=== PATIENT | female | born 1960 | race Caucasian/White ===

== ENCOUNTER 2020-08-16 20:20 | Inpatient (IN) ==
--- NOTE | 2020-08-16 20:41 | DR.CP ---
HPI Time Seen Time Seen by Provider: 08/16/20 20:40 PCP Primary Care Physician: KIP HPI Comment HPI Comment: Worsening weakness over the past 1-2 weeks with cp, sob especially with exertion, dizziness and palpitations; she had telemed per [facility] [place] and subsequent labs drawn at [facility]; received call today stating hb 4.9 as below; denies hemoptysis, epistaxis, vaginal and gi bleeding; reports h/o ellen with iron infusions in the past per cloak room attendant Dr Lazar at [facility]; none recently d/t lack of insurance; she has h/o Crohns, pancreatic insuff, rls, asthma/copd Complaint Chief Complaint:: PT STATES SHE'S BEEN FEELING WEEK OVER PAST FEW WEEKS. LAST NIGHT SHE STARTED HAVE CHEST PAIN, RELIEVED WITH NITRO X1 AT HOME. STARTED HAVING CHEST PAIN WITHIN LAST HR (HAS NOT TAKEN NTG TODAY). PT WAS NOTIFIED BY [facility] LAB RESULT: HBG=4.9, HCT=20.2 AND NBI=759 COVID-19 Coronavirus risk:travel/contact w/high risk person: No Has patient experienced Coronavirus symptoms: No Source History Provided: Patient Mode of Arrival Mode of Arrival: Ambulatory Timing Onset of Chief Complaint: 08/09/20 PMH PMH Past Medical History: Yes Past Medical History: Anemia, Asthma and Dyslipidemia Past Medical History Comment: CERVICAL STENOSIS, LOW BACK PAIN, RLS Past Surgical History: Yes Surgical History: Tonsillectomy Past Surgical History Comment: PARTIAL HYSTERECTOMY, TUBALIGATION Family History History of Family Medical Conditions: Yes Family Medical History: CT, Coronary Artery Disease and Hypertension Social History Does patient currently use any type of tobacco product: No Have you used tobacco products in the last 12 months: No Type of Tobacco Use: Cigarettes Does any household member use tobacco: No Alcohol Use: None Do you use any recreational Drugs:: No Lives With: Family Lives Where: Home Travel Risk Coronavirus risk:travel/contact w/high risk person: No Has patient experienced Coronavirus symptoms: No Infectious screening In the last 2 months have you had wt loss of >10#?: NO Have you had fever, night sweats or hemotysis?: No Have you traveled outside the country in the last 6 months?: No Isolation: Standard ROS Review of Systems Eyes: No Symptoms Reported ENTM: No Symptoms Reported Gastrointestinal/Abdominal: Diarrhea (diarrhea today) Genitourinary: No Symptoms Reported Neurological: No Symptoms Reported Musculoskeletal: No Symptoms Reported Integumentary: No Symptoms Reported Endocrine: No Symptoms Reported Psychiatric: No Symptoms Reported PE Vitals Vitals: Temperature 99.6 F Pulse Rate 91 Respiratory Rate 18 Blood Pressure 135/60 O2 Sat by Pulse Oximetry 99 General Limitations: No Limitations General Appearance: Alert and In No Apparent Distress Head Head Exam: Normal Inspection Eyes Eye exam: Normal Appearance ENT ENT Exam: Normal Exam Chest Chest Inspection: Normal Inspection Respiratory Respiratory Exam: Normal Lung Sounds Bilat Cardiovascular Cardiovascular Exam: Regular Rate and Normal Rhythm Pulse: Normal Edema: Normal Abdominal Exam Abdominal Exam: Normal Bowel Sounds, Soft and Tenderness (epigastrium) Extremities Extremities Exam: Normal Inspection Neurologic Neurological Exam: Alert and Oriented X3 Psychiatric Psychiatric Exam: Normal Affect and Normal Mood Skin Skin Exam: Warm, Dry, Intact and Normal Color COURSE Consultation Call Returned: 22:10 (s/w Dr Mosley who accepts admission) ROR Labs Reviewed Laboratory Results Reviewed?: Yes Result Diagrams: 08/16/20 21:07 08/16/20 21:07 Laboratory: WBC 9.8 X10^3/uL (3.6-10.0) 08/16/20 21:07 RBC 3.15 X10^6/uL (3.5-5.4) L 08/16/20 21:07 Hgb 4.8 g/dL (12.0-16.0) L* 08/16/20 21:07 Hct 16.6 % (36.0-47.0) L* 08/16/20 21:07 MCV 52.8 fL (80.0-100.0) L 08/16/20 21:07 MCH 15.2 pg (27.0-34.0) L 08/16/20 21:07 MCHC 28.8 g/dL (33.0-35.0) L 08/16/20 21:07 RDW 20.5 % (11.6-16.5) H 08/16/20 21:07 Plt Count 732 X10^3/uL (150.0-450.0) H 08/16/20 21:07 Plt Count Comment Increased (ADEQUATE) A 08/16/20 21:07 MPV 6.3 fL (7.4-11.0) L 08/16/20 21:07 Neut % (Auto) 61.4 % (42.0-75.0) 08/16/20 21:07 Lymph % (Auto) 28.7 % (21.0-51.0) 08/16/20 21:07 [place] % (Auto) 6.7 % (0.0-13.0) 08/16/20 21:07 Eos % (Auto) 1.8 % (0.9-2.9) 08/16/20 21:07 Baso % (Auto) 1.4 % (0.2-1.0) H 08/16/20 21:07 Neut # (Auto) 6.0 x10^3/uL (2.2-4.8) H 08/16/20 21:07 Lymph # (Auto) 2.8 X10^3/uL (1.3-2.9) 08/16/20 21:07 [place] # (Auto) 0.7 x10^3/uL (0.3-0.8) 08/16/20 21:07 Eos # (Auto) 0.2 x10^3/uL (0.0-0.2) 08/16/20 21:07 Baso # (Auto) 0.1 X10^3/uL (0.0-0.1) 08/16/20 21:07 Absolute Nucleated RBC 0.1 /100WBC 08/16/20 21:07 Plt Morphology Comment Normal (NORMAL) 08/16/20 21:07 RBC Morphology Abnormal (NORMAL) A 08/16/20 21:07 Hypochromasia 3+ A 08/16/20 21:07 Poikilocytosis 1+ A 08/16/20 21:07 Anisocytosis 1+ A 08/16/20 21:07 Microcytosis 3+ A 08/16/20 21:07 Target Cells Present 08/16/20 21:07 Tear Drop Cells Present 08/16/20 21:07 Ovalocytes Present 08/16/20 21:07 Stomatocytes Present 08/16/20 21:07 Sodium 142 mmol/L (136-145) 08/16/20 21:07 Corrected Sodium TNP 08/16/20 21:07 Potassium 3.7 mmol/L (3.5-5.1) 08/16/20 21:07 Chloride 104 mmol/L (98-107) 08/16/20 21:07 Carbon Dioxide 26.5 mmol/L (21-32) 08/16/20 21:07 BUN 7 mg/dL (7-18) 08/16/20 21:07 Creatinine 0.86 mg/dL (0.55-1.02) 08/16/20 21:07 Est GFR (MDRD) Af Amer > 60 (>60) 08/16/20 21:07 Est GFR (MDRD) Non-Af > 60 (>60) 08/16/20 21:07 Glucose 94 mg/dL (65-99) 08/16/20 21:07 Calcium 9.0 mg/dL (8.5-10.1) 08/16/20 21:07 Corrected Calcium TNP 08/16/20 21:07 Total Bilirubin 0.20 mg/dL (0.2-1.0) 08/16/20 21:07 AST 13 Units/L (15-37) L 08/16/20 21:07 ALT 11 Units/L (12-78) L 08/16/20 21:07 Alkaline Phosphatase 76 Units/L (46-116) 08/16/20 21:07 Creatine Kinase 90 Units/L (26-192) 08/16/20 21:07 CK-MB (CK-2) < 1.0 ng/mL (0-4.0) 08/16/20 21:07 CK/CKMB % Calc 1.1 % (<4) 08/16/20 21:07 Troponin I < 0.02 ng/mL (0-1.5) 08/16/20 21:07 Total Protein 7.4 g/dL (6.4-8.2) 08/16/20 21:07 Albumin 3.4 g/dL (3.4-5.0) 08/16/20 21:07 Globulin 4.0 g/dL (2.5-4.5) 08/16/20 21:07 Albumin/Globulin Ratio 0.9 Ratio (1.1-2.1) L 08/16/20 21:07 Specimen Type Clean catch urine 08/16/20 20:52 Urine Color Yellow (YELLOW) 08/16/20 20:52 Urine Appearance Clear (CLEAR) 08/16/20 20:52 Urine pH 7.0 (5.0 - 8.0) 08/16/20 20:52 Ur Specific [place] 1.010 (1.000-1.030) 08/16/20 20:52 Urine Protein Negative (NEGATIVE) 08/16/20 20:52 Urine Glucose (UA) Negative (NEGATIVE) 08/16/20 20:52 Urine Ketones Negative (NEGATIVE) 08/16/20 20:52 Urine Occult Blood Negative (NEGATIVE) 08/16/20 20:52 Urine Nitrite Negative (NEGATIVE) 08/16/20 20:52 Urine Bilirubin Negative (NEGATIVE) 08/16/20 20:52 Urine Urobilinogen Normal (NORMAL) 08/16/20 20:52 Ur Leukocyte Esterase Negative (NEGATIVE) 08/16/20 20:52 Blood Type B NEGATIVE 08/16/20 21:07 Antibody Screen Negative 08/16/20 21:07 Crossmatch See Detail 08/16/20 21:07 Opioid Opioid Risk Tool Age (Amilcar box if 16-45): No History of Preadolescent Sexual Abuse: No Total: 0 Total Score Risk Category: Low Risk Copyright: Nathan MARQUIS predicting aberrant behaviors Diagnosis Discharge Problem: Symptomatic anemia, Other chest pain, Pancreatic insufficiency, Restless legs syndrome (RLS) ELLEN (iron deficiency anemia) Qualifiers: Iron deficiency anemia type: other iron deficiency Qualified Code(s): D50.8 - Other iron deficiency anemias Crohn's disease Qualifiers: Gastrointestinal tract location: unspecified location Digestive disease complication type: without complication Qualified Code(s): K50.90 - Crohn's disease, unspecified, without complications Instructions Forms: Patient Portal Social Distancing
[2020-08-16 21:02] LABS: BILIRUBIN,URINE NEGATIVE (NEGATIVE); BLOOD/HEMOGLOBIN,URINE NEGATIVE (NEGATIVE); GLUCOSE, URINE NEGATIVE (NEGATIVE); KETONES,URINE NEGATIVE (NEGATIVE); LEUKOCYTE ESTERASE ,URINE NEGATIVE (NEGATIVE); NITRITES,URINE NEGATIVE (NEGATIVE); PROTEIN,URINE NEGATIVE (NEGATIVE); UROBILINOGEN,URINE NORMAL (NORMAL)
[2020-08-16 21:03] LABS: APPEARANCE,URINE CLEAR (CLEAR); COLOR,URINE YELLOW (YELLOW)
[2020-08-16 21:20] LABS: BASOPHILS # (AUTO) 0.1 X10^3/uL (0.0-0.1); BASOPHILS % (AUTO) 1.4 % (0.2-1.0); EOSINOPHILS # (AUTO) 0.2 x10^3/uL (0.0-0.2); EOSINOPHILS % (AUTO) 1.8 % (0.9-2.9); LYMPHOCYTES # (AUTO) 2.8 X10^3/uL (1.3-2.9); LYMPHOCYTES % (AUTO) 28.7 % (21.0-51.0); MEAN CORPUSCULAR HEMOGLOBIN 15.2 pg (27.0-34.0); MEAN CORPUSCULAR HGB CONC 28.8 g/dL (33.0-35.0); MEAN CORPUSCULAR VOLUME 52.8 fL (80.0-100.0); MEAN PLATELET VOLUME 6.3 fL (7.4-11.0); MONOCYTES # (AUTO) 0.7 x10^3/uL (0.3-0.8); MONOCYTES % (AUTO) 6.7 % (0.0-13.0); NEUTROPHILS % (AUTO) 61.4 % (42.0-75.0); PLATELET COUNT 732 X10^3/uL (150.0-450.0); RED BLOOD COUNT 3.15 X10^6/uL (3.5-5.4); RED CELL DISTRIBUTION WIDTH 20.5 % (11.6-16.5); WHITE BLOOD COUNT 9.8 X10^3/uL (3.6-10.0)
[2020-08-16 21:28] LABS: HEMATOCRIT 16.6 % (36.0-47.0); HEMOGLOBIN 4.8 g/dL (12.0-16.0)
[2020-08-16 21:38] LABS: ANISOCYTOSIS 1+; HYPOCHROMASIA 3+; MICROCYTOSIS 3+; PLATELET MORPHOLOGY COMMENT NORMAL (NORMAL); POIKILOCYTOSIS 1+
[2020-08-16 21:39] LABS: OVALOCYTES PRESENT; STOMATOCYTES PRESENT; TARGET CELLS PRESENT; TEAR DROP CELLS PRESENT
[2020-08-16 21:41] LABS: ALANINE AMINOTRANSFERASE 11 Units/L (12-78); ALBUMIN 3.4 g/dL (3.4-5.0); ALKALINE PHOSPHATASE 76 Units/L (46-116); ASPARTATE AMINO TRANSFERASE 13 Units/L (15-37); BLOOD UREA NITROGEN 7 mg/dL (7-18); CARBON DIOXIDE 26.5 mmol/L (21-32); CHLORIDE 104 mmol/L (98-107); CKMB % 1.1 % (<4); CREATINE KINASE 90 Units/L (26-192); CREATINE KINASE MB < 1.0 ng/mL (0-4.0); CREATININE 0.86 mg/dL (0.55-1.02); SODIUM 142 mmol/L (136-145); TOTAL PROTEIN 7.4 g/dL (6.4-8.2); TROPONIN I < 0.02 ng/mL (0-1.5); eGFR NON BLACK RACES > 60 (>60)
[2020-08-16] MEDS ORDERED: NS IV ONE (22:18)
[2020-08-16] MEDS ORDERED: INFED OR DEXFERRUM IV ONE (22:18)
--- NOTE | 2020-08-16 23:39 | RAD ---
EXAM: CHEST X-RAYHISTORY: Chest pain.TECHNIQUE: AP chest x-ray dated August 16, 2020 at 8:51 PM.COMPARISON: None available.FINDINGS:The heart size and mediastinum are within normal limits. The lung sherman and costophrenic angles are clear. There is no acute parenchymal infiltrate, pleural effusion, or pneumothorax seen. The visualized bony structures are within normal limits.IMPRESSION:1. No evidence for acute cardiopulmonary disease seen.Electronically signed by: Bailee Fisher (Aug 16, 2020 23:37:34)
[2020-08-16] MEDS ORDERED: NS 100 ML IV 100 ML with VENOFER 400 MG IV NR ×2 (23:45)
[2020-08-17] MEDS ORDERED: NS 250 ML IV 250 ML IV ONE (01:20)
[2020-08-17 01:36] VITALS: BMI 31.3
[2020-08-17] MEDS: NS 250 ML IV 250 ML IV PRN ×3 (01:47→16:09)
[2020-08-17] MEDS: REQUIP PO SCH ×2 (02:12→20:22)
[2020-08-17 04:51] LABS: ALANINE AMINOTRANSFERASE 10 Units/L (12-78); ALKALINE PHOSPHATASE 69 Units/L (46-116); ASPARTATE AMINO TRANSFERASE 11 Units/L (15-37); BLOOD UREA NITROGEN 5 mg/dL (7-18); CALCIUM 8.5 mg/dL (8.5-10.1); CARBON DIOXIDE 27.3 mmol/L (21-32); CHLORIDE 104 mmol/L (98-107); COR CA(FOR HYPOALB) 9.3 mg/dL (8.5-10.1); CREATININE 0.78 mg/dL (0.55-1.02); SODIUM 143 mmol/L (136-145); TOTAL PROTEIN 6.8 g/dL (6.4-8.2); eGFR NON BLACK RACES > 60 (>60)
[2020-08-17 04:54] LABS: BASOPHILS % (AUTO) 0 % (0.2-1.0); EOSINOPHILS # (AUTO) 0.1 x10^3/uL (0.0-0.2); EOSINOPHILS % (AUTO) 1.2 % (0.9-2.9); LYMPHOCYTES # (AUTO) 2.2 X10^3/uL (1.3-2.9); LYMPHOCYTES % (AUTO) 25.3 % (21.0-51.0); MEAN CORPUSCULAR HEMOGLOBIN 15.2 pg (27.0-34.0); MEAN CORPUSCULAR VOLUME 52.3 fL (80.0-100.0); MEAN PLATELET VOLUME 8.3 fL (7.4-11.0); MONOCYTES # (AUTO) 1.1 x10^3/uL (0.3-0.8); MONOCYTES % (AUTO) 12.2 % (0.0-13.0); NEUTROPHILS # (AUTO) 5.4 x10^3/uL (2.2-4.8); NEUTROPHILS % (AUTO) 61.3 % (42.0-75.0); PLATELET COUNT 700 X10^3/uL (150.0-450.0); RED BLOOD COUNT 2.99 X10^6/uL (3.5-5.4); RED CELL DISTRIBUTION WIDTH 20.3 % (11.6-16.5); WHITE BLOOD COUNT 8.9 X10^3/uL (3.6-10.0)
[2020-08-17 05:33] LABS: HEMATOCRIT 15.6 % (36.0-47.0); HEMOGLOBIN 4.5 g/dL (12.0-16.0); PLATELET MORPHOLOGY COMMENT NORMAL (NORMAL)
[2020-08-17 05:36] LABS: HYPOCHROMASIA 3+
[2020-08-17 05:37] LABS: ANISOCYTOSIS 1+; MICROCYTOSIS 3+; OVALOCYTES PRESENT; STOMATOCYTES PRESENT; TARGET CELLS PRESENT; TEAR DROP CELLS PRESENT
--- NOTE | 2020-08-17 10:38 | DR.H&P ---
H&P History & Physical for Day of: H&P Date: 08/17/20 Chief Complaint Chief Complaint: generalized weakness, SOB Allergies Allergies Allergy/AdvReac Type Severity Reaction Status Date / Time aspirin Allergy Verified 08/16/20 20:46 bismuth subsalicylate Allergy Verified 08/16/20 20:46 [From Pepto-Bismol] NSAIDS (Non-Steroidal Allergy Verified 08/16/20 20:46 Anti-Inflamma pregabalin [From Lyrica] Allergy Verified 08/16/20 20:46 Oklopcj-Kvh-Ttu Reductase Allergy Verified 08/16/20 20:46 Inhibitor History of Present Illness History of Present Illness: Ms. Wolfe is a 59y/o female with a PMH chronic neck & back pain due to DDD, ARMEN, Asthma and pancreatic insufficiency presented with worsening dyspnea, generalized weakness and chest pain for the past 2-3 weeks. She had a telemed visit with a provider and had outpatient labs don which showed severe anemia with a hgb of 4.9. She was told to go to the ER but she could not as she was taking care of her elderly mother. She came in yesterday and Hgb was 4.8 and then 4.5 this AM. Patient's blood products arrived from [place] [facility] this AM. She is currently getting her 2nd unit of PRBC. She states she had severe chest pain at home, felt like something heavy sitting on her ch est. She did take nitro which helped relive the pain. Denies hx of CAD, HTN or DM. Patient denies active bleeding, no melena or hemoptysis. She has had colonoscopy and EGD within the last year which showed hiatal hernia, no ulcers. She has a hx of ARMEN and used to get iron infusions, last one over 2 years ago. Denies prev blood transfusion. ER work up - Labs Hgb 4.8 trop (-) CMP within normal limits Iron:6 Ferritin: 2 UA (-) COVID-19 (-) CXR: no acute process Patient did receive iron transfusion in the ED. Plan: transfuse 2 unit PRBCs, check Hgb 1 hour after transfusion and if below 7, transfuse another 2 units. Order FOBT. Resume home medications. Monitor for any active bleeding. Repeat troponin, continue telemetry. Monitor AM labs and imaging. Time spent for clinical management, reviewing labs/imaging, physical exam, decision making and documentation greater than 75 mins. Past Medical History Past Medical History: Anemia, Asthma and Dyslipidemia Past Surgical History Surgical History: Hysterectomy, Tonsillectomy and Other Family History Family Medical History: Cancer and Coronary Artery Disease Social History Does patient currently use any type of tobacco product: Yes Have you used tobacco products in the last 12 months: Yes Type of Tobacco Use: Cigarettes How many years tobacco product used: 40 Does any household member use tobacco: No Alcohol Use: None Drug Use: None Prescription drug monitoring program results: PDMP reviewed and no concerns identified Medications Home Medications: aspirin Allergy (Verified 08/16/20 20:46) bismuth subsalicylate [From Pepto-Bismol] Allergy (Verified 08/16/20 20:46) NSAIDS (Non-Steroidal Anti-Inflamma Allergy (Verified 08/16/20 20:46) pregabalin [From Lyrica] Allergy (Verified 08/16/20 20:46) Khqfkpc-Xuc-Ozz Reductase Inhibitor Allergy (Verified 08/16/20 20:46) CONTINUE taking the following medications albuterol [Proventil] 180 mcg INHALATION Q4H PRN 08/16/20 [History] amitriptyline 50 mg PO QHS 08/16/20 [History] baclofen 10 mg PO TID 08/16/20 [History] hydrocodone-acetaminophen [Lortab 5-325] 1 tab PO Q6H PRN 08/16/20 [History] txgbmc-ywdxjhsm-ubeguly [Creon 20] 3 cap PO QID 08/16/20 [History] Labs Result Diagrams: 08/17/20 04:29 08/17/20 04:29 Labs: Laboratory WBC 8.9 X10^3/uL (3.6-10.0) 08/17/20 04:29 RBC 2.99 X10^6/uL (3.5-5.4) L 08/17/20 04:29 Hgb 4.5 g/dL (12.0-16.0) L* 08/17/20 04:29 Hct 15.6 % (36.0-47.0) L* 08/17/20 04:29 MCV 52.3 fL (80.0-100.0) L 08/17/20 04:29 MCH 15.2 pg (27.0-34.0) L 08/17/20 04:29 MCHC 29.0 g/dL (33.0-35.0) L 08/17/20 04:29 RDW 20.3 % (11.6-16.5) H 08/17/20 04:29 Plt Count 700 X10^3/uL (150.0-450.0) H 08/17/20 04:29 Plt Count Comment Increased (ADEQUATE) A 08/17/20 04:29 MPV 8.3 fL (7.4-11.0) 08/17/20 04:29 Neut % (Auto) 61.3 % (42.0-75.0) 08/17/20 04:29 Lymph % (Auto) 25.3 % (21.0-51.0) 08/17/20 04:29 [place] % (Auto) 12.2 % (0.0-13.0) 08/17/20 04:29 Eos % (Auto) 1.2 % (0.9-2.9) 08/17/20 04:29 Baso % (Auto) 0 % (0.2-1.0) L 08/17/20 04:29 Neut # (Auto) 5.4 x10^3/uL (2.2-4.8) H 08/17/20 04:29 Lymph # (Auto) 2.2 X10^3/uL (1.3-2.9) 08/17/20 04:29 [place] # (Auto) 1.1 x10^3/uL (0.3-0.8) H 08/17/20 04:29 Eos # (Auto) 0.1 x10^3/uL (0.0-0.2) 08/17/20 04:29 Baso # (Auto) 0.0 X10^3/uL (0.0-0.1) 08/17/20 04:29 Absolute Nucleated RBC 0.1 /100WBC 08/17/20 04:29 Plt Morphology Comment Normal (NORMAL) 08/17/20 04:29 RBC Morphology Abnormal (NORMAL) A 08/17/20 04:29 Hypochromasia 3+ A 08/17/20 04:29 Poikilocytosis 1+ A 08/16/20 21:07 Anisocytosis 1+ A 08/17/20 04:29 Microcytosis 3+ A 08/17/20 04:29 Target Cells Present 08/17/20 04:29 Tear Drop Cells Present 08/17/20 04:29 Ovalocytes Present 08/17/20 04:29 Stomatocytes Present 08/17/20 04:29 Sodium 143 mmol/L (136-145) 08/17/20 04:29 Corrected Sodium TNP 08/17/20 04:29 Potassium 3.7 mmol/L (3.5-5.1) 08/17/20 04:29 Chloride 104 mmol/L (98-107) 08/17/20 04:29 Carbon Dioxide 27.3 mmol/L (21-32) 08/17/20 04:29 BUN 5 mg/dL (7-18) L 08/17/20 04:29 Creatinine 0.78 mg/dL (0.55-1.02) 08/17/20 04:29 Est GFR (MDRD) Af Amer > 60 (>60) 08/17/20 04:29 Est GFR (MDRD) Non-Af > 60 (>60) 08/17/20 04:29 Glucose 107 mg/dL (65-99) H 08/17/20 04:29 Calcium 8.5 mg/dL (8.5-10.1) 08/17/20 04:29 Corrected Calcium 9.3 mg/dL (8.5-10.1) 08/17/20 04:29 Iron 6 ug/dL (50-175) L 08/16/20 20:07 TIBC 539 ug/dL (250-450) H 08/16/20 20:07 % Saturation 1.1 % (11.0-46.0) L 08/16/20 20:07 Transferrin 416 mg/dL (202-364) H 08/16/20 21:07 Ferritin 2 ng/mL (8-252) L 08/16/20 20:07 Total Bilirubin 0.20 mg/dL (0.2-1.0) 08/17/20 04:29 AST 11 Units/L (15-37) L 08/17/20 04:29 ALT 10 Units/L (12-78) L 08/17/20 04:29 Alkaline Phosphatase 69 Units/L (46-116) 08/17/20 04:29 Creatine Kinase 90 Units/L (26-192) 08/16/20 21:07 CK-MB (CK-2) < 1.0 ng/mL (0-4.0) 08/16/20 21:07 CK/CKMB % Calc 1.1 % (<4) 08/16/20 21:07 Troponin I < 0.02 ng/mL (0-1.5) 08/16/20 21:07 Total Protein 6.8 g/dL (6.4-8.2) 08/17/20 04:29 Albumin 3.0 g/dL (3.4-5.0) L 08/17/20 04:29 Globulin 3.8 g/dL (2.5-4.5) 08/17/20 04:29 Albumin/Globulin Ratio 0.8 Ratio (1.1-2.1) L 08/17/20 04:29 Specimen Type Clean catch urine 08/16/20 20:52 Urine Color Yellow (YELLOW) 08/16/20 20:52 Urine Appearance Clear (CLEAR) 08/16/20 20:52 Urine pH 7.0 (5.0 - 8.0) 08/16/20 20:52 Ur Specific [place] 1.010 (1.000-1.030) 08/16/20 20:52 Urine Protein Negative (NEGATIVE) 08/16/20 20:52 Urine Glucose (UA) Negative (NEGATIVE) 08/16/20 20:52 Urine Ketones Negative (NEGATIVE) 08/16/20 20:52 Urine Occult Blood Negative (NEGATIVE) 08/16/20 20:52 Urine Nitrite Negative (NEGATIVE) 08/16/20 20:52 Urine Bilirubin Negative (NEGATIVE) 08/16/20 20:52 Urine Urobilinogen Normal (NORMAL) 08/16/20 20:52 Ur Leukocyte Esterase Negative (NEGATIVE) 08/16/20 20:52 SARS CoV-2 RNA Rapid PATRICIO Negative (NEGATIVE) 08/16/20 23:00 Blood Type B NEGATIVE 08/16/20 21:07 Antibody Screen Negative 08/16/20 21:07 Crossmatch See Detail 08/16/20 21:07 Review of Systems Constitutional: Weakness and Malaise Eyes: No Symptoms Reported ENT: No Symptoms Reported Respiratory: Shortness of Breath Cardiovascular: Chest Pain Gastrointestinal: No Symptoms Reported Genitourinary: No Symptoms Reported Musculoskeletal: Back Pain and Neck Pain Skin: No Symptoms Reported Neurological: No Symptoms Reported Physical Exam Vital Signs: Temperature 98.8 F Pulse Rate [Right] 79 Pulse Rate 81 Respiratory Rate 18 Blood Pressure [Right Arm] 141/67 Blood Pressure 130/63 O2 Sat by Pulse Oximetry 100 Oriented: Normal Eyes: Normal Ear: Normal Nose: Normal Throat: Normal Respiratory: Clear Throughout Cardiovascular: Normal Auscultation: Bowel Sounds: Normal Palpation: Normal Tenderness: Normal Skin: Normal Musculoskeletal: Back:Thoracic, Back:Lumbar and Back:Paraspinous Psychiatric: Normal Mood Description: Calm Speech Pattern: Clear and Appropriate Assessment/Plan (1) Symptomatic anemia: Status: Acute (2) ARMEN (iron deficiency anemia): Qualifiers: Iron deficiency anemia type: other iron deficiency Qualified Code(s): D50.8 - Other iron deficiency anemias Status: Acute (3) Other chest pain: Status: Acute (4) Crohn's disease: Qualifiers: Digestive disease complication type: without complication Gastrointestinal tract location: unspecified location Qualified Code(s): K50.90 - Crohn's disease, unspecified, without complications Status: Acute (5) Pancreatic insufficiency: Status: Acute (6) Restless legs syndrome (RLS): Status: Acute Review H&P Reviewed: Yes Patient was examined?: Yes
[2020-08-17] MEDS: DUONEB 0.5 MG/3 MG (3 mL) NEB SCH ×2 (12:00→21:16)
[2020-08-17] MEDS: [UNRECOGNIZED DRUG - OTHER] PO SCH ×3 (12:21→20:22)
[2020-08-17] MEDS: LIPASE PROTEASE AMYLASE PO SCH ×3 (12:21→20:22)
[2020-08-17] MEDS: NORCO 5/325 MG TAB PO PRN ×2 (12:21→20:22)
[2020-08-17 12:54] LABS: HEMATOCRIT 23.7 % (36.0-47.0); HEMOGLOBIN 7.4 g/dL (12.0-16.0)
[2020-08-17] MEDS: LIORESAL PO SCH ×2 (14:31→21:00)
[2020-08-17 19:36] LABS: HEMOGLOBIN 9.1 g/dL (12.0-16.0)
[2020-08-17] MEDS: ELAVIL PO SCH (20:22)
[2020-08-18] MEDS: NORCO 5/325 MG TAB PO PRN ×3 (04:00→21:01)
[2020-08-18 04:42] LABS: BASOPHILS # (AUTO) 0.2 X10^3/uL (0.0-0.1); BASOPHILS % (AUTO) 1.9 % (0.2-1.0); EOSINOPHILS # (AUTO) 0.3 x10^3/uL (0.0-0.2); EOSINOPHILS % (AUTO) 3.3 % (0.9-2.9); HEMATOCRIT 27.9 % (36.0-47.0); HEMOGLOBIN 8.8 g/dL (12.0-16.0); LYMPHOCYTES # (AUTO) 2.2 X10^3/uL (1.3-2.9); LYMPHOCYTES % (AUTO) 22.3 % (21.0-51.0); MEAN CORPUSCULAR HEMOGLOBIN 19.9 pg (27.0-34.0); MEAN CORPUSCULAR HGB CONC 31.7 g/dL (33.0-35.0); MEAN CORPUSCULAR VOLUME 62.7 fL (80.0-100.0); MEAN PLATELET VOLUME 8.4 fL (7.4-11.0); MONOCYTES # (AUTO) 0.7 x10^3/uL (0.3-0.8); MONOCYTES % (AUTO) 7.7 % (0.0-13.0); NEUTROPHILS # (AUTO) 6.2 x10^3/uL (2.2-4.8); NEUTROPHILS % (AUTO) 64.8 % (42.0-75.0); PLATELET COUNT 619 X10^3/uL (150.0-450.0); RED BLOOD COUNT 4.44 X10^6/uL (3.5-5.4); RED CELL DISTRIBUTION WIDTH 32.1 % (11.6-16.5); WHITE BLOOD COUNT 9.6 X10^3/uL (3.6-10.0)
[2020-08-18 04:43] LABS: BLOOD UREA NITROGEN 2 mg/dL (7-18); CALCIUM 8.8 mg/dL (8.5-10.1); CHLORIDE 106 mmol/L (98-107); CREATININE 0.79 mg/dL (0.55-1.02); SODIUM 143 mmol/L (136-145); eGFR NON BLACK RACES > 60 (>60)
[2020-08-18 05:02] LABS: PLATELET MORPHOLOGY COMMENT NORMAL (NORMAL)
[2020-08-18 05:03] LABS: ANISOCYTOSIS 3+; HYPOCHROMASIA 2+; MICROCYTOSIS 2+; OVALOCYTES PRESENT; TARGET CELLS PRESENT; TEAR DROP CELLS PRESENT
[2020-08-18] MEDS: LIORESAL PO SCH ×3 (05:17→20:54)
[2020-08-18] MEDS: LIPASE PROTEASE AMYLASE PO SCH ×4 (08:40→20:54)
[2020-08-18] MEDS: [UNRECOGNIZED DRUG - OTHER] PO SCH ×4 (08:40→20:54)
[2020-08-18] MEDS: DUONEB 0.5 MG/3 MG (3 mL) NEB SCH ×2 (08:42→21:18)
--- NOTE | 2020-08-18 09:57 | PCM.PROG ---
Progress Note Progress Note for Day of Date of Exam: 08/18/20 Subjective Subjective: Patient seen at bedside, no overnight events. She has been [facility] ICU. She states she was not able to sleep much due to constant back pain and not being able to get comfortable. She did get her pain medicine. She states she felt slightly better last night after the francis sfusions. She received 3 units of PRBCs. Her Hgb this morning is 8.8. Denies active bleeding. No BM yet. Patient does report some indigestion and heartburn. She takes Nexium at home. Labs: Hgb 8.8 Plt 619 Na: 143 K: 3.7 Glucose 109 Trop (-) Plan: Consult PT/OT, follow up on FOBT. Resume nexium, add zofran prn for nausea. Monitor for any signs of bleeding. Monitor H/H. Monitor AM labs and i maging. Past Medical Family Social History Past Med/Fam/Surg Hx: No changes since H&P Allergies: Allergies aspirin Allergy (Verified 08/16/20 20:46) bismuth subsalicylate [From Pepto-Bismol] Allergy (Verified 08/16/20 20:46) NSAIDS (Non-Steroidal Anti-Inflamma Allergy (Verified 08/16/20 20:46) pregabalin [From Lyrica] Allergy (Verified 08/16/20 20:46) Xpsekbq-Akx-Nvn Reductase Inhibitor Allergy (Verified 08/16/20 20:46) Review of Systems ROS: No change since H&P Vital Signs and I&O's Vital Signs: Temperature 98.4 F Pulse Rate [Right] 79 Pulse Rate 82 Respiratory Rate 21 Blood Pressure [Right Arm] 142/69 Blood Pressure 130/63 O2 Sat by Pulse Oximetry 95 Intake and Output: Intake & Output 08/15/20 08/16/20 08/17/20 08/18/20 23:59 23:59 23:59 23:59 Intake Total 2346 / 2346 250 / 250 Output Total 0 / 0 Balance 2346 / 2346 250 / 250 Physical Exam Oriented: Normal Eyes: Normal Ear: Normal Nose: Normal Throat: Normal Respiratory: Normal Cardiovascular: Normal Auscultation: Bowel Sounds: Normal Tenderness: Normal Skin: Normal Musculoskeletal: Back:Thoracic, Back:Lumbar and Back:Paraspinous Psychiatric: Normal Mood Description: Calm Affect: Normal Speech Pattern: Clear and Appropriate Laboratory and Diagnostics Result Diagrams: 08/18/20 04:10 08/18/20 04:10 Labs: Laboratory WBC 9.6 X10^3/uL (3.6-10.0) 08/18/20 04:10 RBC 4.44 X10^6/uL (3.5-5.4) 08/18/20 04:10 Hgb 8.8 g/dL (12.0-16.0) L 08/18/20 04:10 Hct 27.9 % (36.0-47.0) L 08/18/20 04:10 MCV 62.7 fL (80.0-100.0) L 08/18/20 04:10 MCH 19.9 pg (27.0-34.0) L 08/18/20 04:10 MCHC 31.7 g/dL (33.0-35.0) L 08/18/20 04:10 RDW 32.1 % (11.6-16.5) H 08/18/20 04:10 Plt Count 619 X10^3/uL (150.0-450.0) H 08/18/20 04:10 Plt Count Comment Increased (ADEQUATE) A 08/18/20 04:10 MPV 8.4 fL (7.4-11.0) 08/18/20 04:10 Neut % (Auto) 64.8 % (42.0-75.0) 08/18/20 04:10 Lymph % (Auto) 22.3 % (21.0-51.0) 08/18/20 04:10 [place] % (Auto) 7.7 % (0.0-13.0) 08/18/20 04:10 Eos % (Auto) 3.3 % (0.9-2.9) H 08/18/20 04:10 Baso % (Auto) 1.9 % (0.2-1.0) H 08/18/20 04:10 Neut # (Auto) 6.2 x10^3/uL (2.2-4.8) H 08/18/20 04:10 Lymph # (Auto) 2.2 X10^3/uL (1.3-2.9) 08/18/20 04:10 [place] # (Auto) 0.7 x10^3/uL (0.3-0.8) 08/18/20 04:10 Eos # (Auto) 0.3 x10^3/uL (0.0-0.2) H 08/18/20 04:10 Baso # (Auto) 0.2 X10^3/uL (0.0-0.1) H 08/18/20 04:10 Absolute Nucleated RBC 0.3 /100WBC 08/18/20 04:10 Plt Morphology Comment Normal (NORMAL) 08/18/20 04:10 RBC Morphology Abnormal (NORMAL) A 08/18/20 04:10 Dimorphic RBCs Present 08/18/20 04:10 Hypochromasia 2+ A 08/18/20 04:10 Poikilocytosis 1+ A 08/16/20 21:07 Anisocytosis 3+ A 08/18/20 04:10 Microcytosis 2+ A 08/18/20 04:10 Target Cells Present 08/18/20 04:10 Tear Drop Cells Present 08/18/20 04:10 Ovalocytes Present 08/18/20 04:10 Stomatocytes Present 08/17/20 04:29 Sodium 143 mmol/L (136-145) 08/18/20 04:10 Corrected Sodium TNP 08/18/20 04:10 Potassium 3.7 mmol/L (3.5-5.1) 08/18/20 04:10 Chloride 106 mmol/L (98-107) 08/18/20 04:10 Carbon Dioxide 26.0 mmol/L (21-32) 08/18/20 04:10 BUN 2 mg/dL (7-18) L 08/18/20 04:10 Creatinine 0.79 mg/dL (0.55-1.02) 08/18/20 04:10 Est GFR (MDRD) Af Amer > 60 (>60) 08/18/20 04:10 Est GFR (MDRD) Non-Af > 60 (>60) 08/18/20 04:10 Glucose 109 mg/dL (65-99) H 08/18/20 04:10 Calcium 8.8 mg/dL (8.5-10.1) 08/18/20 04:10 Corrected Calcium 9.3 mg/dL (8.5-10.1) 08/17/20 04:29 Iron 6 ug/dL (50-175) L 08/16/20 20:07 TIBC 539 ug/dL (250-450) H 08/16/20 20:07 % Saturation 1.1 % (11.0-46.0) L 08/16/20 20:07 Transferrin 416 mg/dL (202-364) H 08/16/20 21:07 Ferritin 2 ng/mL (8-252) L 08/16/20 20:07 Total Bilirubin 0.20 mg/dL (0.2-1.0) 08/17/20 04:29 AST 11 Units/L (15-37) L 08/17/20 04:29 ALT 10 Units/L (12-78) L 08/17/20 04:29 Alkaline Phosphatase 69 Units/L (46-116) 08/17/20 04:29 Creatine Kinase 90 Units/L (26-192) 08/16/20 21:07 CK-MB (CK-2) < 1.0 ng/mL (0-4.0) 08/16/20 21:07 CK/CKMB % Calc 1.1 % (<4) 08/16/20 21:07 Troponin I < 0.02 ng/mL (0-1.5) 08/17/20 10:54 Total Protein 6.8 g/dL (6.4-8.2) 08/17/20 04:29 Albumin 3.0 g/dL (3.4-5.0) L 08/17/20 04:29 Globulin 3.8 g/dL (2.5-4.5) 08/17/20 04:29 Albumin/Globulin Ratio 0.8 Ratio (1.1-2.1) L 08/17/20 04:29 Specimen Type Clean catch urine 08/16/20 20:52 Urine Color Yellow (YELLOW) 08/16/20 20:52 Urine Appearance Clear (CLEAR) 08/16/20 20:52 Urine pH 7.0 (5.0 - 8.0) 08/16/20 20:52 Ur Specific [place] 1.010 (1.000-1.030) 08/16/20 20:52 Urine Protein Negative (NEGATIVE) 08/16/20 20:52 Urine Glucose (UA) Negative (NEGATIVE) 08/16/20 20:52 Urine Ketones Negative (NEGATIVE) 08/16/20 20:52 Urine Occult Blood Negative (NEGATIVE) 08/16/20 20:52 Urine Nitrite Negative (NEGATIVE) 08/16/20 20:52 Urine Bilirubin Negative (NEGATIVE) 08/16/20 20:52 Urine Urobilinogen Normal (NORMAL) 08/16/20 20:52 Ur Leukocyte Esterase Negative (NEGATIVE) 08/16/20 20:52 SARS CoV-2 RNA Rapid PATRICIO Negative (NEGATIVE) 08/16/20 23:00 Blood Type B NEGATIVE 08/16/20 21:07 Antibody Screen Negative 08/16/20 21:07 Crossmatch See Detail 08/16/20 21:07 Plan (1) Symptomatic anemia: Status: Acute (2) ARMEN (iron deficiency anemia): Status: Acute Qualifiers: Iron deficiency anemia type: other iron deficiency Qualified Code(s): D50.8 - Other iron deficiency anemias (3) Other chest pain: Status: Acute (4) Crohn's disease: Status: Acute Qualifiers: Digestive disease complication type: without complication Gastroi ntestinal tract location: unspecified location Qualified Code(s): K50.90 - Crohn's disease, unspecified, without complications (5) Pancreatic insufficiency: Status: Acute (6) Restless legs syndrome (RLS): Status: Acute
[2020-08-18] MEDS ORDERED: ZOFRAN TAB 4 MG PO PRN (10:02)
[2020-08-18] MEDS: NexIUM PO SCH (10:31)
[2020-08-18] MEDS: ELAVIL PO SCH (20:54)
[2020-08-18] MEDS: REQUIP PO SCH (20:54)
[2020-08-19] MEDS: NORCO 5/325 MG TAB PO PRN ×2 (03:49→11:20)
[2020-08-19 05:00] LABS: BASOPHILS # (AUTO) 0.3 X10^3/uL (0.0-0.1); BASOPHILS % (AUTO) 2.3 % (0.2-1.0); EOSINOPHILS # (AUTO) 0.4 x10^3/uL (0.0-0.2); HEMATOCRIT 26.9 % (36.0-47.0); HEMOGLOBIN 8.4 g/dL (12.0-16.0); LYMPHOCYTES # (AUTO) 2.7 X10^3/uL (1.3-2.9); LYMPHOCYTES % (AUTO) 24.5 % (21.0-51.0); MEAN CORPUSCULAR HGB CONC 31.4 g/dL (33.0-35.0); MEAN CORPUSCULAR VOLUME 63.6 fL (80.0-100.0); MEAN PLATELET VOLUME 8.2 fL (7.4-11.0); MONOCYTES # (AUTO) 0.7 x10^3/uL (0.3-0.8); MONOCYTES % (AUTO) 6.8 % (0.0-13.0); NEUTROPHILS # (AUTO) 6.8 x10^3/uL (2.2-4.8); NEUTROPHILS % (AUTO) 62.4 % (42.0-75.0); PLATELET COUNT 608 X10^3/uL (150.0-450.0); RED BLOOD COUNT 4.23 X10^6/uL (3.5-5.4); RED CELL DISTRIBUTION WIDTH 31.9 % (11.6-16.5); WHITE BLOOD COUNT 10.9 X10^3/uL (3.6-10.0)
[2020-08-19 05:02] LABS: BLOOD UREA NITROGEN 4 mg/dL (7-18); CALCIUM 8.9 mg/dL (8.5-10.1); CARBON DIOXIDE 26.8 mmol/L (21-32); CHLORIDE 107 mmol/L (98-107); CREATININE 0.81 mg/dL (0.55-1.02); SODIUM 144 mmol/L (136-145); eGFR NON BLACK RACES > 60 (>60)
[2020-08-19 05:21] LABS: ANISOCYTOSIS 3+; HYPOCHROMASIA 2+; MICROCYTOSIS 2+; PLATELET MORPHOLOGY COMMENT NORMAL (NORMAL); TEAR DROP CELLS PRESENT
[2020-08-19 05:22] LABS: OVALOCYTES PRESENT
[2020-08-19] MEDS: LIORESAL PO SCH ×2 (05:23→14:15)
[2020-08-19] MEDS ORDERED: TUSSIONEX PENNKINETIC SUSP PO PRN (08:21)
[2020-08-19] MEDS: LIPASE PROTEASE AMYLASE PO SCH ×3 (08:52→17:19)
[2020-08-19] MEDS: [UNRECOGNIZED DRUG - OTHER] PO SCH ×3 (08:52→17:19)
[2020-08-19] MEDS: NexIUM PO SCH (08:52)
[2020-08-19] MEDS: DUONEB 0.5 MG/3 MG (3 mL) NEB SCH ×2 (09:19→13:08)
[2020-08-19] MEDS ORDERED: SENOKOT PO SCH (11:00)
--- NOTE | 2020-08-19 13:54 | RAD ---
HISTORYLow hemoglobinSTUDYChest AP caltxyfmULIWWAXULD11/19/2021FINDINGSThe heart is mildly enlarged. No congestive heart failure is noted. No acute alveolar infiltrates or pleural effusions are identified. There is a moderate-sized hiatal hernia present. Bony thorax is unremarkable.IMPRESSIONMinimal cardiomegaly without congestive heart failureLungs clearModerate-sized hiatal herniaElectronically signed by: DAAN FRANCIS (Aug 19, 2020 13:52:58)
[2020-08-19] MEDS ORDERED: ZITHROMAX TAB 250 MG PO ONE (14:07)
--- NOTE | 2020-08-19 14:41 | RAD ---
PROCEDURE: Abdomen X-ray 1 View .HISTORY: HIstory of low hemoglobin .TECHNIQUE: AP supine abdomen view .COMPARISON: None .TECHNICAL QUALITY: Satisfactory .FINDINGS:Scattered gas and feces in the colon without distention. No obstruction or ileus.No organomegaly.No abnormal calcifications.No acute bony abnormality.IMPRESSION:Nonspecific bowel-gas pattern.Electronically signed by: Keenan Lopez (Aug 19, 2020 14:38:12)
[2020-08-19] MEDS ORDERED: MILK OF MAGNESIA PO SCH (14:45)
[2020-08-19 16:01] VITALS: BP 138/67
--- NOTE | 2020-08-19 16:47 | W.DIS.FURT ---
Summary of Discharge Discharge Summary of Date Date of Exam: 08/19/20 Admission Date Date of Admission: 08/17/20 Admission Diagnosis Patient Problems (Updated 08/20/20 @ 16:28 by Pat Mosley) Symptomatic anemia (Acute) D64.9 ARMEN (iron deficiency anemia) (Acute) D50.9 Other chest pain (Acute) R07.89 Crohn's disease (Chronic) K50.90 Pancreatic insufficiency (Chronic) K86.89 Restless legs syndrome (RLS) (Chronic) G25.81 Hospital Course: Ms. Wolfe is a 59y/o female with a H chronic neck & back pain due to DDD, ARMEN, Asthma and pancreatic insufficiency presented with worsening dyspnea, gener alized weakness and chest pain for the past 2-3 weeks. She had a telemed visit with a provider and had outpatient labs don which showed severe anemia with a hgb of 4.9. She was told to go to the ER but she could not as she was taking care of her elderly mother. She states she had severe chest pain at home, felt like something heavy sitting on her chest. She did take nitro which helped relive the pain. Denies hx of CAD, HTN or DM. Patient denies active bleeding, no melena or hemoptysis. She has had colonoscopy and EGD within the last year which showed hiatal hernia, no ulcers. She has a hx of ARMEN and used to get iron infusions, last one over 2 years ago. Denies prev blood transfusion. In the ER, she was found to have Hgb 4.8, iron 6 and Ferritin 3. Cardiac enzymes were negative. Patient's blood was type and crossed and products came from a lab in [place]. Patient was started on iron transfusion in the ER. She received a total of 3 PRBCs. Patient's hgb remained stable after transfusions. PT/OT was also consulted and recommended no further needs. Patient's weakness improved and she was ambulating in the room. Stool occult was ordered but patient did not have BM while admitted. KUB did show stool and she was given milk of magnesia. She was also started on oral iron supplements. She did have some cough and CXR was done which did not show pneumonia. She was stable for discharge, hgb 8.4. She will follow up with PCP and Dr. Davis for further outpatient work up. Vital Signs: Vital Signs (72 hours) 08/16/20 20:23 08/16/20 20:54 08/16/20 21:00 Temperature 99.6 F Pulse Rate 95 H 97 H 93 H Pulse Rate [Right] Respiratory Rate 20 18 18 Blood Pressure 124/58 135/60 Blood Pressure [Left Arm] Blood Pressure [Right Arm] O2 Sat by Pulse Oximetry 99 99 99 08/16/20 21:01 08/16/20 21:15 08/16/20 21:30 Temperature Pulse Rate 91 H 92 H 91 H Pulse Rate [Right] Respiratory Rate 18 25 H 23 Blood Pressure 135/60 138/62 Blood Pressure [Left Arm] Blood Pressure [Right Arm] O2 Sat by Pulse Oximetry 99 99 100 08/16/20 21:45 08/16/20 22:00 08/16/20 22:04 Temperature Pulse Rate 89 85 87 Pulse Rate [Right] Respiratory Rate 22 23 31 H Blood Pressure 127/60 Blood Pressure [Left Arm] Blood Pressure [Right Arm] O2 Sat by Pulse Oximetry 100 100 100 08/16/20 22:15 08/16/20 22:30 08/16/20 22:33 Temperature Pulse Rate 82 84 82 Pulse Rate [Right] Respiratory Rate 19 19 20 Blood Pressure 132/65 Blood Pressure [Left Arm] Blood Pressure [Right Arm] O2 Sat by Pulse Oximetry 99 100 100 08/16/20 22:45 08/16/20 23:00 08/16/20 23:01 Temperature Pulse Rate 83 83 82 Pulse Rate [Right] Respiratory Rate 22 26 H 18 Blood Pressure 127/60 Blood Pressure [Left Arm] Blood Pressure [Right Arm] O2 Sat by Pulse Oximetry 100 92 L 100 08/16/20 23:15 08/16/20 23:30 08/16/20 23:48 Temperature Pulse Rate 94 H 84 86 Pulse Rate [Right] Respiratory Rate 19 Blood Pressure 132/60 Blood Pressure [Left Arm] Blood Pressure [Right Arm] O2 Sat by Pulse Oximetry 100 97 96 08/16/20 23:52 08/17/20 00:47 08/17/20 01:00 Temperature 99.2 F Pulse Rate 81 Pulse Rate [Right] 84 Respiratory Rate 20 24 23 Blood Pressure 130/63 Blood Pressure [Left Arm] Blood Pressure [Right Arm] 136/70 O2 Sat by Pulse Oximetry 100 100 08/17/20 06:25 08/17/20 09:54 06/20/21 12:21 Temperature 98.6 F 98.8 F Pulse Rate Pulse Rate [Right] 73 79 Respiratory Rate 18 18 20 Blood Pressure Blood Pressure [Left Arm] Blood Pressure [Right Arm] 133/68 141/67 O2 Sat by Pulse Oximetry 97 100 08/17/20 13:21 08/17/20 14:00 08/17/20 17:56 Temperature 98.7 F 98.9 F Pulse Rate Pulse Rate [Right] 78 71 Respiratory Rate 20 18 20 Blood Pressure Blood Pressure [Left Arm] Blood Pressure [Right Arm] 140/66 136/67 O2 Sat by Pulse Oximetry 97 96 08/17/20 20:22 08/17/20 21:16 08/17/20 21:22 Temperature Pulse Rate 77 Pulse Rate [Right] Respiratory Rate 22 21 Blood Pressure Blood Pressure [Left Arm] Blood Pressure [Right Arm] O2 Sat by Pulse Oximetry 99 08/17/20 22:00 08/18/20 04:00 08/18/20 05:00 Temperature 98.0 F 98.3 F Pulse Rate Pulse Rate [Right] 87 78 Respiratory Rate 27 H 22 22 Blood Pressure Blood Pressure [Left Arm] Blood Pressure [Right Arm] 146/69 153/73 O2 Sat by Pulse Oximetry 97 99 08/18/20 08:00 08/18/20 08:42 08/18/20 12:00 Temperature 98.4 F 98.2 F Pulse Rate 82 Pulse Rate [Right] 79 80 Respiratory Rate 21 20 Blood Pressure Blood Pressure [Left Arm] Blood Pressure [Right Arm] 142/69 139/61 O2 Sat by Pulse Oximetry 94 L 95 94 L 08/18/20 13:45 08/18/20 14:45 08/18/20 15:56 Temperature 97.9 F Pulse Rate Pulse Rate [Right] 81 Respiratory Rate 22 22 18 Blood Pressure Blood Pressure [Left Arm] Blood Pressure [Right Arm] 127/58 O2 Sat by Pulse Oximetry 94 L 08/18/20 20:00 08/18/20 21:01 08/18/20 21:18 Temperature 98.3 F Pulse Rate 73 Pulse Rate [Right] 77 Respiratory Rate 18 18 Blood Pressure Blood Pressure [Left Arm] 126/61 Blood Pressure [Right Arm] O2 Sat by Pulse Oximetry 94 L 99 08/18/20 22:01 08/19/20 00:00 08/19/20 03:49 Temperature 98.4 F Pulse Rate Pulse Rate [Right] 79 Respiratory Rate 18 18 18 Blood Pressure Blood Pressure [Left Arm] 131/62 Blood Pressure [Right Arm] O2 Sat by Pulse Oximetry 96 08/19/20 04:00 08/19/20 04:49 08/19/20 08:00 Temperature 98.2 F 97.3 F L Pulse Rate Pulse Rate [Right] 76 76 Respiratory Rate 18 18 20 Blood Pressure Blood Pressure [Left Arm] 144/68 117/58 Blood Pressure [Right Arm] O2 Sat by Pulse Oximetry 97 95 08/19/20 09:19 08/19/20 11:20 08/19/20 12:00 Temperature 97.8 F Pulse Rate 80 Pulse Rate [Right] 78 Respiratory Rate 18 21 Blood Pressure Blood Pressure [Left Arm] 113/65 Blood Pressure [Right Arm] O2 Sat by Pulse Oximetry 95 93 L 08/19/20 12:20 08/19/20 13:08 08/19/20 16:00 Temperature 97.6 F Pulse Rate 86 Pulse Rate [Right] 86 Respiratory Rate 18 20 Blood Pressure Blood Pressure [Left Arm] 138/67 Blood Pressure [Right Arm] O2 Sat by Pulse Oximetry 97 96 Labs: Laboratory Last Values WBC 10.9 X10^3/uL (3.6-10.0) H 08/19/20 04:32 RBC 4.23 X10^6/uL (3.5-5.4) 08/19/20 04:32 Hgb 8.4 g/dL (12.0-16.0) L 08/19/20 04:32 Hct 26.9 % (36.0-47.0) L 08/19/20 04:32 MCV 63.6 fL (80.0-100.0) L 08/19/20 04:32 MCH 20.0 pg (27.0-34.0) L 08/19/20 04:32 MCHC 31.4 g/dL (33.0-35.0) L 08/19/20 04:32 RDW 31.9 % (11.6-16.5) H 08/19/20 04:32 Plt Count 608 X10^3/uL (150.0-450.0) H 08/19/20 04:32 Plt Count Comment Increased (ADEQUATE) A 08/19/20 04:32 MPV 8.2 fL (7.4-11.0) 08/19/20 04:32 Neut % (Auto) 62.4 % (42.0-75.0) 08/19/20 04:32 Lymph % (Auto) 24.5 % (21.0-51.0) 08/19/20 04:32 Jack % (Auto) 6.8 % (0.0-13.0) 08/19/20 04:32 Eos % (Auto) 4.0 % (0.9-2.9) H 08/19/20 04:32 Baso % (Auto) 2.3 % (0.2-1.0) H 08/19/20 04:32 Neut # (Auto) 6.8 x10^3/uL (2.2-4.8) H 08/19/20 04:32 Lymph # (Auto) 2.7 X10^3/uL (1.3-2.9) 08/19/20 04:32 Jack # (Auto) 0.7 x10^3/uL (0.3-0.8) 08/19/20 04:32 Eos # (Auto) 0.4 x10^3/uL (0.0-0.2) H 08/19/20 04:32 Baso # (Auto) 0.3 X10^3/uL (0.0-0.1) H 08/19/20 04:32 Absolute Nucleated RBC 0.3 /100WBC 08/19/20 04:32 Plt Morphology Comment Normal (NORMAL) 08/19/20 04:32 RBC Morphology Abnormal (NORMAL) A 08/19/20 04:32 Dimorphic RBCs Present 08/19/20 04:32 Hypochromasia 2+ A 08/19/20 04:32 Poikilocytosis 1+ A 08/16/20 21:07 Anisocytosis 3+ A 08/19/20 04:32 Microcytosis 2+ A 08/19/20 04:32 Target Cells Present 08/18/20 04:10 Tear Drop Cells Present 08/19/20 04:32 Ovalocytes Present 08/19/20 04:32 Stomatocytes Present 08/17/20 04:29 Sodium 144 mmol/L (136-145) 08/19/20 04:32 Corrected Sodium TNP 08/19/20 04:32 Potassium 3.8 mmol/L (3.5-5.1) 08/19/20 04:32 Chloride 107 mmol/L (98-107) 08/19/20 04:32 Carbon Dioxide 26.8 mmol/L (21-32) 08/19/20 04:32 BUN 4 mg/dL (7-18) L 08/19/20 04:32 Creatinine 0.81 mg/dL (0.55-1.02) 08/19/20 04:32 Est GFR (MDRD) Af Amer > 60 (>60) 08/19/20 04:32 Est GFR (MDRD) Non-Af > 60 (>60) 08/19/20 04:32 Glucose 100 mg/dL (65-99) H 08/19/20 04:32 Calcium 8.9 mg/dL (8.5-10.1) 08/19/20 04:32 Corrected Calcium 9.3 mg/dL (8.5-10.1) 08/17/20 04:29 Iron 6 ug/dL (50-175) L 08/16/20 20:07 TIBC 539 ug/dL (250-450) H 08/16/20 20:07 % Saturation 1.1 % (11.0-46.0) L 08/16/20 20:07 Transferrin 416 mg/dL (202-364) H 08/16/20 21:07 Ferritin 2 ng/mL (8-252) L 08/16/20 20:07 Total Bilirubin 0.20 mg/dL (0.2-1.0) 08/17/20 04:29 AST 11 Units/L (15-37) L 08/17/20 04:29 ALT 10 Units/L (12-78) L 08/17/20 04:29 Alkaline Phosphatase 69 Units/L (46-116) 08/17/20 04:29 Creatine Kinase 90 Units/L (26-192) 08/16/20 21:07 CK-MB (CK-2) < 1.0 ng/mL (0-4.0) 08/16/20 21:07 CK/CKMB % Calc 1.1 % (<4) 08/16/20 21:07 Troponin I < 0.02 ng/mL (0-1.5) 08/17/20 10:54 Total Protein 6.8 g/dL (6.4-8.2) 08/17/20 04:29 Albumin 3.0 g/dL (3.4-5.0) L 08/17/20 04:29 Globulin 3.8 g/dL (2.5-4.5) 08/17/20 04:29 Albumin/Globulin Ratio 0.8 Ratio (1.1-2.1) L 08/17/20 04:29 Specimen Type Clean catch urine 08/16/20 20:52 Urine Color Yellow (YELLOW) 08/16/20 20:52 Urine Appearance Clear (CLEAR) 08/16/20 20:52 Urine pH 7.0 (5.0 - 8.0) 08/16/20 20:52 Ur Specific [place] 1.010 (1.000-1.030) 08/16/20 20:52 Urine Protein Negative (NEGATIVE) 08/16/20 20:52 Urine Glucose (UA) Negative (NEGATIVE) 08/16/20 20:52 Urine Ketones Negative (NEGATIVE) 08/16/20 20:52 Urine Occult Blood Negative (NEGATIVE) 08/16/20 20:52 Urine Nitrite Negative (NEGATIVE) 08/16/20 20:52 Urine Bilirubin Negative (NEGATIVE) 08/16/20 20:52 Urine Urobilinogen Normal (NORMAL) 08/16/20 20:52 Ur Leukocyte Esterase Negative (NEGATIVE) 08/16/20 20:52 SARS CoV-2 RNA Rapid PATRICIO Negative (NEGATIVE) 08/16/20 23:00 Blood Type B NEGATIVE 08/16/20 21:07 Antibody Screen Negative 08/16/20 21:07 Crossmatch See Detail 08/16/20 21:07 Reason For Visit: SYMPTOMATIC ANEMIA, CP, ARMEN Discharge Date Discharge Date: 08/19/20 Discharge Diagnosis All Active Problems (Updated 08/20/20 @ 16:28 by Pat Mosley) Bronchitis (Acute) Symptomatic anemia (Acute) ARMEN (iron deficiency anemia) (Acute) Other chest pain (Acute) Crohn's disease (Chronic) Pancreatic insufficiency (Chronic) Restless legs syndrome (RLS) (Chronic) Plan of Treatment: Continue with present treatment and follow up plan. Pt is to keep follow up appointment as instructed and take medications as ordered. Discharge Medications Discharge Medications: aspirin Allergy (Verified 08/16/20 20:46) bismuth subsalicylate [From Pepto-Bismol] Allergy (Verified 08/16/20 20:46) NSAIDS (Non-Steroidal Anti-Inflamma Allergy (Verified 08/16/20 20:46) pregabalin [From Lyrica] Allergy (Verified 08/16/20 20:46) Yduxohp-Arj-Yqh Reductase Inhibitor Allergy (Verified 08/16/20 20:46) CONTINUE taking the following medications albuterol 180 mcg INHALATION Q4H PRN 08/16/20 [History] amitriptyline 50 mg PO QHS 08/16/20 [History] baclofen 10 mg PO TID 08/16/20 [History] hydrocodone-acetaminophen 1 tab PO Q6H PRN 08/16/20 [History] ecazrm-yxzhkmde-hiadiat 3 cap PO QID 08/16/20 [History] New Prescriptions albuterol sulfate 2 puff INHALATION Q4-6H PRN #6.7 g 08/19/20 [Rx] azithromycin 250 mg PO DAILY #4 tab 08/19/20 [Rx] esomeprazole magnesium 40 mg PO DAILY 30 Days #30 cap 08/19/20 [Rx] ferrous gluconate 324 mg PO BID 30 Days #60 tab 08/19/20 [Rx] ropinirole 1 mg PO HS 30 Days #30 tab 08/19/20 [Rx] Follow up and Referral Follow Up: 1 Week (PCP ) Discharge Disposition Discharge Disposition: Home Discharge Condition: Stable Discharge Plan Discharge Plan Hospital Course: Ms. Wolfe is a 59y/o female with a H chronic neck & back pain due to DDD, ARMEN, Asthma and pancreatic insufficiency presented with worsening dyspnea, generalized weakness and chest pain for the past 2-3 weeks. She had a telemed visit with a provider and had outpatient labs don which showed severe anemia with a hgb of 4.9. She was told to go to the ER but she could not as she was taking care of her elderly mother. She states she had severe chest pain at home, felt like something heavy sitting on her chest. She did take nitro which helped relive the pain. Denies hx of CAD, HTN or DM. Patient denies active bleeding, no melena or hemoptysis. She has had colonoscopy and EGD within the last year which showed hiatal hernia, no ulcers. She has a hx of ARMEN and used to get iron infusions, last one over 2 years ago. Denies prev blood transfusion. In the ER, she was found to have Hgb 4.8, iron 6 and Ferritin 3. Cardiac enzymes were negative. Patient's blood was type and crossed and products came from a lab in [place]. Patient was started on iron transfusion in the ER. She received a total of 3 PRBCs. Patient's hgb remained stable after transfusions. PT/OT was also consulted and recommended no further needs. Patient's weakness improved and she was ambulating in the room. Stool occult was ordered but patient did not have BM while admitted. KUB did show stool and she was given milk of magnesia. She was also started on oral iron supplements. She did have some cough and CXR was done which did not show pneumonia. She was stable for discharge, hgb 8.4. She will follow up with PCP and Dr. Davis for further outpatient work up. Patient Disposition: 01 HOME, SELF-CARE Condition: Stable Health Concerns: Post Hospitalization: new medications and changes needed to prevent readmission or further decline. Pt educated and given instructions on all concerns. Care Plan Goals: Problem: Fluid Volume Deficit Goal: Maintain/Improved Adequate hydration. Instructions: Follow provided instructions. Follow up with primary physician as directed. Contact primary care physician or report to the closest Emergency Room if condition worsens. Plan of Treatment: Continue with present treatment and follow up plan. Pt is to keep follow up appointment as instructed and take medications as ordered. Prescription drug monitoring program results: PDMP reviewed and no concerns identified Prescriptions: New ropinirole 1 mg Tablet 1 mg PO HS 30 Days Qty: 30 RF: 1 esomeprazole magnesium 40 mg Capsule,Delayed Release(Dr/Ec) 40 mg PO DAILY 30 Days Qty: 30 RF: 1 azithromycin 250 mg tablet 250 mg PO DAILY Qty: 4 RF: 0 albuterol sulfate 90 mcg/actuation HFA aerosol inhaler 2 puff inhalation Q4-6H PRN (Reason: shortness of breath or wheezing) Qty: 6.7 RF: 1 ferrous gluconate 324 mg (37.5 mg iron) tablet 324 mg PO BID 30 Days Qty: 60 RF: 1 Continued hydrocodone-acetaminophen 5-325 mg Tablet 1 tab PO Q6H PRNRF: 0 amitriptyline 50 mg Tablet 50 mg PO QHS RF: 0 baclofen 10 mg Tablet 10 mg PO TID RF: 0 albuterol 90 mcg/actuation Aerosol 180 mcg INHALATION Q4H PRNRF: 0 iedazx-ygaqqspr-btoavsp 497 mg (20,000- 75K-66.4K unit) Capsule,Delayed Release(Dr/Ec) 3 cap PO QID RF: 0 Follow ups/Referrals Follow ups/Referrals: RAJEEV DAVIS [STAFF PHYSICIAN] - 09/08/20 1:00 pm ($160 at first visit Office will mail you new patient packet, fill out and bring with you to your appointment.) Pat Mosley [STAFF PHYSICIAN] - 08/26/20 9:30 am Instructions Instructions: Fall Prevention in the Home, Adult, Ydkf-[id number]-Mgkf, Anemia, Steps to Quit Smoking, Ebep-he-Woax, Preventing Iron Deficiency Anemia, Adult, Iron- Rich Diet, Crohn's Disease Stand Alone Forms: Precautions for COVID19, Patient Portal, Social Distancing
== END 2020-08-19 17:25 | disposition home or self-care (01) | DRG 812 ==
LOC: ER 20:20 → ICU 23:30 → MED/SURG 08-18 04:25
PROVIDERS: ADMIT Internal Medicine; ATTEND Internal Medicine
DX: G25.81 Restless legs syndrome; K86.89 Other specified diseases of pancreas; R53.1 Weakness; K50.90 Crohn's disease, unspecified, without complications; R42 Dizziness and giddiness; R07.89 Other chest pain; R26.89 Other abnormalities of gait and mobility; R06.02 Shortness of breath; D50.8 Other iron deficiency anemias